=== PATIENT | male | born 1975 | race Caucasian/White ===

== ENCOUNTER 2019-12-06 20:33 | Emergency (ER) | payer BC ==
[2019-12-06] MEDS ORDERED: ALBUTEROL 1 PUFF INH STA (20:57)
--- NOTE | 2019-12-06 20:58 | ED Physician Documentation ---
PD HPI DYSPNEA - Stated complaint Stated Complaint: SOA/WHEEZING - Chief complaint Chief Complaint: Resp - History obtained from History obtained from: Patient - Additional information Additional information: 44-year-old gentleman with his history of anxiety but no history of heart or lung problems has had progressive wheezing and shortness of breath with mild cough for the last few days. No associated fevers or pedal edema. Review of Systems Constitutional: denies: Fever, Chills Nose: denies: Rhinorrhea / runny nose Throat: denies: Sore throat Cardiac: denies: Chest pain / pressure, Palpitations Respiratory: reports: Dyspnea, Cough PD PAST MEDICAL HISTORY - Present Medications Home Medications: Ambulatory Orders Medication Instructions Recorded Confirmed Albuterol Sulf [Ventolin Hfa 1 - 2 puffs INH Q4HR PRN #1 inhaler 12/06/19 Inhaler] Escitalopram [Lexapro] 10 mg PO DAILY 12/06/19 12/06/19 dexAMETHasone [Decadron] 4 mg PO BIDWM #10 tablet 12/06/19 - Allergies Allergies/Adverse Reactions: Allergies Allergy/AdvReac Type Severity Reaction Status Date / Time Sulfa (Sulfonamide AdvReac Hives Verified 12/06/19 20:40 Antibiotics) PD ED PE NORMAL - Vitals Vital signs reviewed: Yes - General General: Alert and oriented X 3, No acute distress - HEENT HEENT: PERRL, EOMI - Neck Neck: Supple, no meningeal sign, No bony TTP - Cardiac Cardiac: Other (Modest tachycardia without ectopy or murmur) - Respiratory Respiratory: Other (diminished throughout with exp wheezes, no distress) - Abdomen Abdomen: Non tender - Extremities Extremities: No edema, No calf tenderness / cord - Psych Psych: Normal mood, Normal affect Results - Vitals Vitals: Vital Signs - 24 hr 12/06/19 12/06/19 12/06/19 20:40 20:59 21:26 Temperature 36.5 C Heart Rate 120 H 117 H 120 H Respiratory 16 22 24 Rate Blood Pressure 143/85 H 131/85 H O2 Saturation 96 100 12/06/19 21:44 Temperature Heart Rate 119 H Respiratory 18 Rate Blood Pressure 107/59 L O2 Saturation 100 Oxygen O2 Source Room air PD MEDICAL DECISION MAKING - ED course ED course: 44-year-old gentleman presents with wheezing and cough. No sign of heart failure. Chest x-ray unremarkable. Much clearer lungs after albuterol here and he is administered steroids. Discussed need for quarantine until negative COVID result. Departure - Departure Disposition: 01 Home, Self Care Clinical Impression: Bronchitis Condition: Good Record reviewed to determine appropriate education?: Yes Instructions: ED Bronchitis Asthmatic Prescriptions: Albuterol Sulf [Ventolin Hfa Inhaler] 1 - 2 puffs INH Q4HR PRN #1 inhaler PRN Reason: Shortness Of Air/Wheezing dexAMETHasone [Decadron] 4 mg PO BIDWM #10 tablet Comments: `Your symptoms are consistent with a viral bronchitis. Your chest x-ray is normal. Return anytime if worsening. Observe strict home quarantine until coronavirus results is negative. Suggest signing up for would be patient portal online to view your results. You will not receive a phone call if the result is negative.
--- NOTE | 2019-12-06 21:18 | XRAY Report ---
PROCEDURE: Chest 1 View X-Ray INDICATIONS: cough/wheeze TECHNIQUE: One view of the chest was acquired. COMPARISON: None FINDINGS: Surgical changes and devices: None. Lungs and pleura: No pleural effusions or pneumothorax. Lungs are clear. Mediastinum: Mediastinal contours appear normal. Heart size is normal. Bones and chest wall: No suspicious bony lesions. Overlying soft tissues appear unremarkable. IMPRESSION: No acute cardiopulmonary disease process. Reviewed by: Kayla Vilchis MD, PhD on 12/06/2019 9:17 PM PDT Approved by: Kayla Vilchis MD, PhD on 12/06/2019 9:17 PM PDT Station ID: [id number]
[2019-12-06] MEDS ORDERED: DEXAMETHASONE 10 MG/ML VIAL PO STA (21:44)
[2019-12-06] MEDS ORDERED: CHERRY SYRUP 10 ML UDC PO ONE (21:44)
[2019-12-06 21:47] VITALS: BP 107/59
== END 2019-12-06 21:55 | disposition home or self-care (01) ==
LOC: ED 20:33
DX: J40 Bronchitis, not specified as acute or chronic (principal); Z20.828 Contact with and (suspected) exposure to other viral communicable diseases; R00.0 Tachycardia, unspecified
CPT/HCPCS: 71045; 87635; 94640; 99283; 99284; A9270

== ENCOUNTER 2020-01-14 17:16 | Outpatient (CLI) | payer BC ==
[2020-01-14 20:08] LABS: BASOPHILS % (AUTO) 0.3 %; EOSINOPHILS # (AUTO) 0.2 10^3/uL (0.0-0.7); EOSINOPHILS % (AUTO) 2.2 %; HGB - HEMOGLOBIN 13.9 g/dL (14.0-18.0); LYMPHOCYTES # (AUTO) 2.3 10^3/uL (1.5-3.5); LYMPHOCYTES % (AUTO) 32.4 %; MEAN CORPUSCULAR HEMOGLOBIN 31.8 pg (27.0-31.0); MEAN CORPUSCULAR HGB CONC 32.5 g/dL (32.0-36.0); MEAN CORPUSCULAR VOLUME 97.9 fL (80.0-94.0); MONOCYTES # (AUTO) 0.5 10^3/uL (0.0-1.0); MONOCYTES % (AUTO) 7.3 %; NEUTROPHILS # (AUTO) 4.1 10^3/uL (1.5-6.6); NEUTROPHILS % (AUTO) 57.4 %; PLT - PLATELET COUNT 366 10^3/uL (130-450); RED BLOOD COUNT 4.37 10^6/uL (4.70-6.10); RED CELL DISTRIBUTION WIDTH 13.8 % (12.0-15.0); WHITE BLOOD COUNT 7.2 x10^3/uL (4.8-10.8)
[2020-01-14 20:35] LABS: ALBUMIN 4.4 g/dL (3.2-5.5); ALBUMIN/GLOBULIN RATIO 1.3 (1.0-2.2); ALKALINE PHOSPHATASE 48 IU/L (42-121); ALT ALANINE AMINOTRANSFERASE 21 IU/L (10-60); AST ASPARTATE AMINOTRANSFERASE 19 IU/L (10-42); BILIRUBIN,TOTAL 1.3 mg/dL (0.2-1.0); BUN - BLOOD UREA NITROGEN 18 mg/dL (6-20); CALCIUM 9.6 mg/dL (8.5-10.3); CARBON DIOXIDE - CO2 24 mmol/L (21-32); CHLORIDE 103 mmol/L (101-111); CHOL/HDL RATIO 4.1 (<5.0); CHOLESTEROL 261 mg/dL; GLUCOSE 93 mg/dL (70-100); HDL CHOLESTEROL 64 mg/dL; LDL CHOLESTEROL,CALCULATED 185 mg/dL; LDL/HDL RATIO 2.9 (<3.6); SODIUM 136 mmol/L (135-145); TOTAL PROTEIN 7.8 g/dL (6.7-8.2); VLDL CHOLESTEROL 12 mg/dL
== END 2020-01-14 17:17 | disposition home or self-care (01) ==
LOC: LAB.S 17:16
PROVIDERS: ATTEND Physician Assistant
DX: G62.9 Polyneuropathy, unspecified (principal); R18.8 Other ascites
CPT/HCPCS: 36415; 80053; 80061; 83721; 84443; 85025

== ENCOUNTER 2020-01-14 22:30 | Emergency (ER) | payer BC ==
--- NOTE | 2020-01-14 22:34 | ED Physician Documentation ---
History of Present Illness - Stated complaint Stated Complaint: CP - History obtained from History obtained from: Patient - Additonal information Additional information: 44-year-old male presents with chest pain. Patient reports he thinks he just has anxiety but is complaining of diffuse chest discomfort also some epigastric discomfort as well with nausea with no vomiting no syncope denies any history of IN or stroke. Reports recently was started on Lexapro for anxiety. Denies fevers chills or night sweats denies lower extremity swelling denies any cough or shortness of breath denies any recent long travels any exogenous estrogen use any personal history of hypercoagulability or any recent periods of stasis. Denies any family history of sudden in young age and mother, father, brother sister. Denies tobacco alcohol or drug use. Review of Systems Constitutional: reports: Reviewed and negative Eyes: reports: Reviewed and negative Ears: reports: Reviewed and negative Nose: reports: Reviewed and negative Throat: reports: Reviewed and negative Cardiac: reports: Chest pain / pressure, Palpitations Respiratory: reports: Reviewed and negative : reports: Reviewed and negative Skin: reports: Reviewed and negative Musculoskeletal: reports: Reviewed and negative Neurologic: reports: Reviewed and negative Psychiatric: reports: Anxiety Endocrine: reports: Reviewed and negative Immunocompromised: reports: Reviewed and negative PD PAST MEDICAL HISTORY - Past Medical History Psych: Depression, Anxiety - Past Surgical History Past Surgical History: Yes - Present Medications Home Medications: Ambulatory Orders Medication Instructions Recorded Confirmed Albuterol Sulf [Ventolin Hfa 1 - 2 puffs INH Q4HR PRN #1 inhaler 12/06/19 Inhaler] Escitalopram [Lexapro] 10 mg PO DAILY 12/06/19 12/06/19 dexAMETHasone [Decadron] 4 mg PO BIDWM #10 tablet 12/06/19 - Allergies Allergies/Adverse Reactions: Allergies Allergy/AdvReac Type Severity Reaction Status Date / Time Sulfa (Sulfonamide AdvReac Hives Verified 12/06/19 20:40 Antibiotics) - Social History Does the pt smoke?: No Smoking Status: Never smoker Does the pt drink ETOH?: No Does the pt have substance abuse?: No - Immunizations Immunizations are current?: Yes PD ED PE NORMAL - Vitals Vital signs reviewed: Yes - General General: Alert and oriented X 3, No acute distress, Well developed/nourished - HEENT HEENT: Atraumatic, PERRL, Ears normal, Moist mucous membranes, Pharynx benign, Dentition benign - Neck Neck: Supple, no meningeal sign, No bony TTP, No adenopathy, Thyroid normal, No JVD, No bruit - Cardiac Cardiac: RRR, No murmur, No gallop, No rub, Strong equal pulses - Respiratory Respiratory: No respiratory distress, Clear bilaterally - Abdomen Abdomen: Normal bowel sounds, Soft, Non tender, Non distended, No organomegaly, Other - Male Male : Deferred - Rectal Rectal: Deferred - Back Back: No CVA TTP, No spinal TTP - Derm Derm: Normal color, Warm and dry, No rash - Extremities Extremities: No deformity, No tenderness to palpate, Normal ROM s pain, No edema, No calf tenderness / cord - Neuro Neuro: Alert and oriented X 3, can sterilizer 2-12 intact, No motor deficit, No sensory deficit, Normal speech - Psych Psych: Normal mood, Other (anxious) Results - Vitals Vitals: Vital Signs - 24 hr 01/14/20 01/14/20 01/14/20 22:30 22:41 23:43 Temperature 37.1 C Heart Rate 91 100 91 Respiratory 22 20 18 Rate Blood Pressure 183/110 H 156/113 H O2 Saturation 100 100 98 Oxygen O2 Source Room air - EKG (time done) 22:34 Rate: Other (no stemi) 00:58 Rate: Other (no stemi) - Labs Labs: Laboratory Tests 01/14/20 01/14/20 01/14/20 22:40 22:40 22:40 WBC 9.4 RBC 4.54 L Hgb 15.1 Hct 43.6 MCV 96.0 H MCH 33.3 H MCHC 34.6 RDW 13.6 Plt Count 385 MPV 9.4 Neut # (Auto) 5.3 Lymph # (Auto) 3.2 [place] # (Auto) 0.7 Eos # (Auto) 0.2 Baso # (Auto) 0.0 Absolute Nucleated RBC 0.00 Nucleated RBC % 0.0 Sodium 136 Potassium 3.5 Chloride 99 L Carbon Dioxide 24 Anion Gap 13.0 BUN 24 H Creatinine 1.1 Estimated GFR (MDRD) 73 L Glucose 102 H Calcium 9.9 Total Bilirubin 1.1 H AST 19 ALT 23 Alkaline Phosphatase 60 Troponin I High Sens < 2.3 L Total Protein 8.3 H Albumin 4.7 Globulin 3.6 Albumin/Globulin Ratio 1.3 Lipase 53 H Urine Color Urine Clarity Urine pH Ur Specific [place] Urine Protein Urine Glucose (UA) Urine Ketones Urine Occult Blood Urine Nitrite Urine Bilirubin Urine Urobilinogen Ur Leukocyte Esterase Ur Microscopic Review Urine Culture Comments 01/14/20 23:20 WBC RBC Hgb Hct MCV MCH MCHC RDW Plt Count MPV Neut # (Auto) Lymph # (Auto) [place] # (Auto) Eos # (Auto) Baso # (Auto) Absolute Nucleated RBC Nucleated RBC % Sodium Potassium Chloride Carbon Dioxide Anion Gap BUN Creatinine Estimated GFR (MDRD) Glucose Calcium Total Bilirubin AST ALT Alkaline Phosphatase Troponin I High Sens Total Protein Albumin Globulin Albumin/Globulin Ratio Lipase Urine Color YELLOW Urine Clarity CLEAR Urine pH 8.0 H Ur Specific [place] 1.015 Urine Protein NEGATIVE Urine Glucose (UA) NEGATIVE Urine Ketones NEGATIVE Urine Occult Blood NEGATIVE Urine Nitrite NEGATIVE Urine Bilirubin NEGATIVE Urine Urobilinogen 0.2 (NORMAL) Ur Leukocyte Esterase NEGATIVE Ur Microscopic Review NOT INDICATED Urine Culture Comments NOT INDICATED PD MEDICAL DECISION MAKING - ED course Complexity details: reviewed results, re-evaluated patient, considered differential (acs, anxiety), d/w patient, d/w family, other (heart score 1, PERC 0. ) ED course: 44-year-old male with anxiety and chest pain his to negative EKGs and negative chest x-ray one negative troponin he is refusing additional blood work that was ordered. I had ordered a d-dimer as well as is a repeat troponin. The patient reports that he is pain-free now will like to be discharged home and he will follow-up with his primary care provider on Friday he does have medical decision-making capability and capacity and would assume all risks to include cardiac arrest. Departure - Departure Disposition: Home, Self Care Clinical Impression: Anxiety Chest pain Qualifiers: Chest pain type: unspecified Qualified Code(s): R07.9 - Chest pain, unspecified Condition: Stable Instructions: ED Heart Disease Risk Factors, ED Chest Pain Atypical Unkn Cause Follow-Up: your, doctor [Other] - 01/17/20 Comments: Please follow-up with your physician this or on Friday if available. Return to the emergency department with any concerns.
[2020-01-14 22:48] LABS: BASOPHILS % (AUTO) 0.4 %; EOSINOPHILS # (AUTO) 0.2 10^3/uL (0.0-0.7); EOSINOPHILS % (AUTO) 1.6 %; HGB - HEMOGLOBIN 15.1 g/dL (14.0-18.0); LYMPHOCYTES # (AUTO) 3.2 10^3/uL (1.5-3.5); MEAN CORPUSCULAR HEMOGLOBIN 33.3 pg (27.0-31.0); MEAN CORPUSCULAR HGB CONC 34.6 g/dL (32.0-36.0); MEAN PLATELET VOLUME 9.4 fL (7.4-11.4); MONOCYTES # (AUTO) 0.7 10^3/uL (0.0-1.0); MONOCYTES % (AUTO) 7.7 %; NEUTROPHILS # (AUTO) 5.3 10^3/uL (1.5-6.6); PLT - PLATELET COUNT 385 10^3/uL (130-450); RED BLOOD COUNT 4.54 10^6/uL (4.70-6.10); RED CELL DISTRIBUTION WIDTH 13.6 % (12.0-15.0); WHITE BLOOD COUNT 9.4 x10^3/uL (4.8-10.8)
[2020-01-14] MEDS ORDERED: ASPIRIN 325 MG TABLET PO STA (23:01)
[2020-01-14 23:05] LABS: ALBUMIN 4.7 g/dL (3.2-5.5); ALBUMIN/GLOBULIN RATIO 1.3 (1.0-2.2); BILIRUBIN,TOTAL 1.1 mg/dL (0.2-1.0); CALCIUM 9.9 mg/dL (8.5-10.3); CREATININE 1.1 mg/dL (0.6-1.2); TOTAL PROTEIN 8.3 g/dL (6.7-8.2)
[2020-01-15] MEDS ORDERED: LORazepam 2 MG/ML VIAL IVP STA (00:05)
[2020-01-15 00:18] LABS: BILIRUBIN,URINE NEGATIVE (NEGATIVE); GLUCOSE, URINE (UA) NEGATIVE (NEGATIVE); KETONES,URINE (UA) NEGATIVE (NEGATIVE); LEUKOCYTE ESTERASE, URINE NEGATIVE (NEGATIVE); NITRITE,URINE NEGATIVE (NEGATIVE); OCCULT BLOOD,URINE NEGATIVE (NEGATIVE); PROTEIN,URINE NEGATIVE (NEGATIVE); UROBILINOGEN,URINE 0.2 (NORMAL) E.U./dL (NORMAL)
[2020-01-15 00:19] LABS: CLARITY,URINE CLEAR (CLEAR)
[2020-01-15 01:05] VITALS: BP 113/55
--- NOTE | 2020-01-15 08:12 | XRAY Report ---
PROCEDURE: Chest 1 View X-Ray INDICATIONS: cp TECHNIQUE: One view of the chest was acquired. COMPARISON: 12/06/2019 FINDINGS: Surgical changes and devices: None. Lungs and pleura: No pleural effusions or pneumothorax. Lungs are clear. Mediastinum: Mediastinal contours appear normal. Heart size is normal. Bones and chest wall: No suspicious bony lesions. Overlying soft tissues appear unremarkable. IMPRESSION: Stable examination of the chest. No acute cardiopulmonary abnormalities. No significant discrepancy with initial interpretation by overnight radiologist. Reviewed by: Momo Peraza MD on 01/15/2020 8:11 AM PDT Approved by: Momo Peraza MD on 01/15/2020 8:11 AM PDT Station ID: [id number]
== END 2020-01-15 01:21 | disposition home or self-care (01) ==
LOC: ED 22:30
DX: F41.9 Anxiety disorder, unspecified (principal); R07.9 Chest pain, unspecified; G62.9 Polyneuropathy, unspecified; R18.8 Other ascites
CPT/HCPCS: 36415; 71045; 80061; 81003; 83690; 84484; 85379; 93005; 96374; 99284; 99285; A9270; J2060; 80053; 81001; 83721; 84443; 85025; 87086

== ENCOUNTER 2020-01-16 12:40 | Outpatient (CLI) | payer BC | END 2020-01-16 12:41 | disposition critical access hospital (66) | LOC: EMS 12:40 | PROVIDERS: ATTEND Surgery | DX: R10.11 Right upper quadrant pain (principal) | CPT/HCPCS: A0425; A0427 ==

== ENCOUNTER 2020-01-16 13:10 | Emergency (ER) | payer BC ==
[2020-01-16] MEDS ORDERED: HYDROmorphone 1 MG/ML CARPUJECT IVP STA ×2 (13:21→16:13)
--- NOTE | 2020-01-16 13:23 | ED Physician Documentation ---
PD HPI CHEST PAIN - Stated complaint Stated Complaint: ABD PX - History obtained from History obtained from: Patient, EMS - Additional information Additional information: 2 days of severe right upper quadrant and chest pain. Was seen here on day 1, work-up for cardiac issues was negative. Pain got worse yesterday. It is a sharp pain both in the right upper quadrant and chest with spasms. It takes his breath away. He is worried he might have a seizure. He is never had a seizure. He appears quite anxious. He came from an urgent care for evaluation of this. Review of Systems Ten Systems: 10 systems reviewed and negative Constitutional: denies: Fever, Chills Cardiac: reports: Chest pain / pressure. denies: Palpitations Respiratory: denies: Dyspnea, Cough GI: reports: Abdominal Pain. denies: Nausea, Vomiting PD PAST MEDICAL HISTORY - Past Medical History Psych: Depression, Anxiety - Past Surgical History Past Surgical History: Yes - Present Medications Home Medications: Ambulatory Orders Medication Instructions Recorded Confirmed Albuterol Sulf [Ventolin Hfa 1 - 2 puffs INH Q4HR PRN #1 inhaler 12/06/19 Inhaler] Escitalopram [Lexapro] 10 mg PO DAILY 12/06/19 12/06/19 dexAMETHasone [Decadron] 4 mg PO BIDWM #10 tablet 12/06/19 Hydrocodone/Acetaminophen 1 - 2 tab PO Q6H PRN #7 tablet 01/16/20 [Hydrocodone-Acetamin 5-325 mg] LORazepam [Ativan] 1 mg PO TID PRN #7 tablet 01/16/20 - Allergies Allergies/Adverse Reactions: Allergies Allergy/AdvReac Type Severity Reaction Status Date / Time Sulfa (Sulfonamide AdvReac Hives Verified 01/16/20 13:25 Antibiotics) - Social History Does the pt smoke?: No Smoking Status: Never smoker Does the pt drink ETOH?: No Does the pt have substance abuse?: No - Immunizations Immunizations are current?: Yes - POLST Patient has POLST: No PD ED PE NORMAL - Vitals Vital signs reviewed: Yes - General General: Alert and oriented X 3, Other (Anxious, hyperverbal) - HEENT HEENT: PERRL, EOMI - Neck Neck: Supple, no meningeal sign, No bony TTP - Cardiac Cardiac: RRR, No murmur - Respiratory Respiratory: No respiratory distress - Abdomen Abdomen: Normal bowel sounds, Soft, Other (Mild tenderness in the right upper quadrant with equivocal Aguirre sign) - Back Back: No CVA TTP, No spinal TTP - Derm Derm: Normal color, Warm and dry - Extremities Extremities: No edema, No calf tenderness / cord - Neuro Neuro: Alert and oriented X 3, Normal speech Results - Vitals Vitals: Vital Signs - 24 hr 01/16/20 01/16/20 01/16/20 13:13 14:11 16:34 Temperature 36.3 C L 36.6 C 36.5 C Heart Rate 85 76 71 Respiratory 16 20 13 Rate Blood Pressure 131/94 H 103/70 133/73 H O2 Saturation 100 98 95 01/16/20 01/16/20 01/16/20 17:27 19:11 19:18 Temperature 36.9 C 36.7 C Heart Rate 82 83 69 Respiratory 16 16 16 Rate Blood Pressure 120/64 161/95 H 154/91 H O2 Saturation 94 99 99 Oxygen O2 Source Room air - EKG (time done) 1340 Rate: Rate (enter#) (68) Rhythm: NSR [place]: Normal Intervals: Normal MD QRS: Normal Ischemia: Normal ST segments Computer interpretation: Agree with computer - Labs Labs: Laboratory Tests 01/16/20 01/16/20 01/16/20 13:30 13:30 13:30 WBC 6.3 RBC 4.28 L Hgb 14.2 Hct 40.8 L MCV 95.3 H MCH 33.2 H MCHC 34.8 RDW 13.5 Plt Count 371 MPV 9.1 Neut # (Auto) 3.6 Lymph # (Auto) 1.4 L [place] # (Auto) 0.5 Eos # (Auto) 0.7 Baso # (Auto) 0.0 Absolute Nucleated RBC 0.00 Nucleated RBC % 0.0 VBG pH VBG pCO2 VBG pO2 VBG HCO3 VBG Total CO2 VBG O2 Saturation VBG Base Excess Sodium 136 Potassium 4.1 Chloride 102 Carbon Dioxide 20 L Anion Gap 14.0 H BUN 16 Creatinine 1.1 Estimated GFR (MDRD) 73 L Glucose 118 H Calcium 9.7 Total Bilirubin 1.2 H AST 17 ALT 22 Alkaline Phosphatase 57 Troponin I High Sens 2.7 Total Protein 8.3 H Albumin 4.6 Globulin 3.7 Albumin/Globulin Ratio 1.2 Lipase 42 Urine Color Urine Clarity Urine pH Ur Specific [place] Urine Protein Urine Glucose (UA) Urine Ketones Urine Occult Blood Urine Nitrite Urine Bilirubin Urine Urobilinogen Ur Leukocyte Esterase Ur Microscopic Review Urine Culture Comments Urine Opiates Screen Ur Oxycodone Screen Urine Methadone Screen Ur Propoxyphene Screen Ur Barbiturates Screen Ur Tricyclics Screen Ur Phencyclidine Scrn Ur Amphetamine Screen U Methamphetamines Scrn U Benzodiazepines Scrn Urine Cocaine Screen U Cannabinoids Screen Ethyl Alcohol < 5.0 01/16/20 01/16/20 13:30 18:10 WBC RBC Hgb Hct MCV MCH MCHC RDW Plt Count MPV Neut # (Auto) Lymph # (Auto) [place] # (Auto) Eos # (Auto) Baso # (Auto) Absolute Nucleated RBC Nucleated RBC % VBG pH 7.491 H VBG pCO2 26.8 L VBG pO2 43.0 VBG HCO3 20.5 L VBG Total CO2 21.0 L VBG O2 Saturation 83.0 H VBG Base Excess -3.0 L Sodium Potassium Chloride Carbon Dioxide Anion Gap BUN Creatinine Estimated GFR (MDRD) Glucose Calcium Total Bilirubin AST ALT Alkaline Phosphatase Troponin I High Sens Total Protein Albumin Globulin Albumin/Globulin Ratio Lipase Urine Color YELLOW Urine Clarity CLEAR Urine pH 5.0 Ur Specific [place] 1.010 Urine Protein NEGATIVE Urine Glucose (UA) NEGATIVE Urine Ketones NEGATIVE Urine Occult Blood NEGATIVE Urine Nitrite NEGATIVE Urine Bilirubin NEGATIVE Urine Urobilinogen 0.2 (NORMAL) Ur Leukocyte Esterase NEGATIVE Ur Microscopic Review NOT INDICATED Urine Culture Comments NOT INDICATED Urine Opiates Screen POSITIVE H Ur Oxycodone Screen NEGATIVE Urine Methadone Screen NEGATIVE Ur Propoxyphene Screen NEGATIVE Ur Barbiturates Screen NEGATIVE Ur Tricyclics Screen NEGATIVE Ur Phencyclidine Scrn NEGATIVE Ur Amphetamine Screen POSITIVE H U Methamphetamines Scrn POSITIVE H U Benzodiazepines Scrn POSITIVE H Urine Cocaine Screen NEGATIVE U Cannabinoids Screen NEGATIVE Ethyl Alcohol - Rads (name of study) Upper quadrant ultrasound Radiology: EMP read contemporaneously (Focal right-sided intrahepatic biliary ductal dilatation and increased liver echogenicity with an otherwise normal gallbladder.) PD MEDICAL DECISION MAKING - ED course ED course: 44-year-old gentleman presents with upper abdominal/chest pain, significant anxiety component. Pattern most consistent with a biliary source, ultrasound negative but concerning for potential intrahepatic biliary ductal dilatation and followed with CT which was negative for same. Treated stepwise with medications with relief of his pain. Noted to have methamphetamines in the urinalysis which he adamantly denied and will send out for confirmation. Departure - Departure Disposition: 01 Home, Self Care Clinical Impression: Anxiety, Methamphetamine abuse Abdominal pain Qualifiers: Abdominal location: generalized Qualified Code(s): R10.84 - Generalized abdominal pain Chest pain Qualifiers: Chest pain type: unspecified Qualified Code(s): R07.9 - Chest pain, unspecified Condition: Good Record reviewed to determine appropriate education?: Yes Instructions: Abdominal Pain Follow-Up: Audrey Vaughan MD [Provider Admit Priv/Credential] - Within 3 Days Prescriptions: LORazepam [Ativan] 1 mg PO TID PRN #7 tablet PRN Reason: Anxiety Hydrocodone/Acetaminophen [Hydrocodone-Acetamin 5-325 mg] 1 - 2 tab PO Q6H PRN #7 tablet PRN Reason: Pain Comments: As discussed, work-up today shows a normal CAT scan, labs are unremarkable. Urinalysis was positive for multiple drugs including methamphetamines. You have stated you do not use these Drugs and I am sending the urine out for confirmatory test. Follow-up with your doctor for results of this. You should also follow-up with the surgeon listed on this form, call tomorrow for an appointment. Consider HIDA scan and/or upper endoscopy. Discharge Date/Time: 01/16/20 19:21
[2020-01-16 13:37] LABS: BASOPHILS % (AUTO) 0.3 %; EOSINOPHILS # (AUTO) 0.7 10^3/uL (0.0-0.7); EOSINOPHILS % (AUTO) 11.5 %; HGB - HEMOGLOBIN 14.2 g/dL (14.0-18.0); LYMPHOCYTES # (AUTO) 1.4 10^3/uL (1.5-3.5); LYMPHOCYTES % (AUTO) 22.4 %; MEAN CORPUSCULAR HEMOGLOBIN 33.2 pg (27.0-31.0); MEAN CORPUSCULAR HGB CONC 34.8 g/dL (32.0-36.0); MEAN CORPUSCULAR VOLUME 95.3 fL (80.0-94.0); MEAN PLATELET VOLUME 9.1 fL (7.4-11.4); MONOCYTES # (AUTO) 0.5 10^3/uL (0.0-1.0); MONOCYTES % (AUTO) 8.5 %; NEUTROPHILS # (AUTO) 3.6 10^3/uL (1.5-6.6); PLT - PLATELET COUNT 371 10^3/uL (130-450); RED BLOOD COUNT 4.28 10^6/uL (4.70-6.10); RED CELL DISTRIBUTION WIDTH 13.5 % (12.0-15.0); WHITE BLOOD COUNT 6.3 x10^3/uL (4.8-10.8)
[2020-01-16 13:40] LABS: VBG PCO2 26.8 mmHg (41-51); VBG PH 7.491 (7.31-7.41)
[2020-01-16 13:50] LABS: ALBUMIN 4.6 g/dL (3.2-5.5); ALBUMIN/GLOBULIN RATIO 1.2 (1.0-2.2); ALKALINE PHOSPHATASE 57 IU/L (42-121); ALT ALANINE AMINOTRANSFERASE 22 IU/L (10-60); AST ASPARTATE AMINOTRANSFERASE 17 IU/L (10-42); BILIRUBIN,TOTAL 1.2 mg/dL (0.2-1.0); BUN - BLOOD UREA NITROGEN 16 mg/dL (6-20); CALCIUM 9.7 mg/dL (8.5-10.3); CARBON DIOXIDE - CO2 20 mmol/L (21-32); CHLORIDE 102 mmol/L (101-111); CREATININE 1.1 mg/dL (0.6-1.2); GLUCOSE 118 mg/dL (70-100); LIPASE 42 U/L (22-51); SODIUM 136 mmol/L (135-145); TOTAL PROTEIN 8.3 g/dL (6.7-8.2)
--- NOTE | 2020-01-16 16:39 | Ultrasound Report ---
PROCEDURE: Abdomen Limited INDICATIONS: ruq pain TECHNIQUE: Real-time focused scanning was performed of the abdomen, with image documentation. COMPARISON: None available FINDINGS: The liver demonstrates normal size. The liver demonstrates increased echogenicity, which l imits ultrasound sensitivity for detection of masses. There is mild intrahepatic biliary ductal dilatation seen, with a duct within the right lobe of the l iver dilated to 5 mm. No gallstones or significant sludge can be seen. The gallbladder wall does not appear thickened. Ther e is no specific pericholecystic fluid. The sonographic Aguirre's sign is negative. No biliary ductal dilatation is seen. The common bile duct measures 7 mm. The visualized right kidney is unremarkable. This study is limited by body habitus. IMPRESSION: Mild focal intrahepatic biliary ductal dilatation is seen on the right side. If clinically appropria te, please consider a dedicated MRCP for further evaluation (assuming that there is no contraindicati on). Normal-appearing gallbladder. Increased liver echogenicity is seen. This is nonspecific, yet it is attributed to fatty infiltration . Note: Concordant preliminary findings given by the health inspector food upon the completion of the examination to Dr. Vieira at 4:10 PM on 01/16/2020. Reviewed by: Greg Trent MD on 01/16/2020 3:38 PM [facility] Approved by: Greg Trent MD on 01/16/2020 3:38 PM [facility] Station ID: [id number]
[2020-01-16] MEDS ORDERED: IOVERSOL 320 100 ML VIAL IVP ONE ×2 (16:50→17:12)
--- NOTE | 2020-01-16 17:18 | CT Report ---
PROCEDURE: Abdomen/Pelvis W INDICATIONS: abd pain, poss choledocholith, IV only CONTRAST: IV CONTRAST: Optiray 320 ml: 100 PO CONTRAST: *NO PO CONTRAST TECHNIQUE: After the administration of 100 cc nonionic IV contrast, 5 mm thick sections acquired from the diaphr agms to the symphysis. 5 mm thick coronal and sagittal reformats were acquired. For radiation dose reduction, the following was used: automated exposure control, adjustment of mA and/or kV according to patient size. COMPARISON: Correlation is made with limited abdominal ultrasound, 01/16/2020. No prior CT studies ar e available for comparison on the PACS system at the time of this dictation. FINDINGS: Image quality: Excellent. ABDOMEN: Lung bases: Lung bases are clear. Heart size is normal. Solid organs: Liver and spleen are normal in size and enhancement. Gallbladder wall does not appear thickened. In this patient with this given history, scrutiny is g iven to the biliary system. There is no biliary dilatation seen. No CT correlate is found for the pebbles arent intrahepatic biliary ductal dilatation seen on the right on the accompanying ultrasound study. No extrahepatic biliary ductal dilatation is seen. No findings of biliary ductal stones are seen. Pancreas enhances normally. No adrenal nodules. Kidneys demonstrate normal size and enhancement, wi thout hydronephrosis. A normal appendix is incidentally noted. A mild to moderate amount of stool c an be seen within the colon. Peritoneum and bowel: Bowel loops demonstrate normal wall thickness and caliber. No free fluid or a ir. Nodes and vessels: No retroperitoneal or mesenteric adenopathy by size criteria. Aorta and inferior vena cava are normal in size. Miscellaneous: There is a trace periumbilical hernia. PELVIS: Genitourinary: Bladder wall thickness is normal. Miscellaneous: No inguinal hernias or adenopathy. Bones: No suspicious bony lesions. No vertebral body compression fractures. IMPRESSION: No biliary dilatation can be seen. No biliary ductal stones are seen. If clinically appropriate, please consider a dedicated MRCP for further evaluation (assuming that the re is no contraindication). A mild to moderate amount of stool can be seen within the colon. Please consider early constipation. Incidental note is made of: Trace periumbilical hernia Normal appendix Reviewed by: Greg Trent MD on 01/16/2020 4:17 PM [facility] Approved by: Greg Trent MD on 01/16/2020 4:17 PM [facility] Station ID: [id number]
[2020-01-16] MEDS ORDERED: LIDOCAINE VISCOUS 2% 15 ML UDC MM STA (17:41)
[2020-01-16] MEDS ORDERED: MAG HYDROX/AL HYDROX/SIMETH 30 ML UDC PO STA (17:41)
[2020-01-16 18:21] LABS: MUDS CUTOFF CONCENTRATIONS CUTOFF CONC BELOW:
[2020-01-16 18:33] LABS: BILIRUBIN,URINE NEGATIVE (NEGATIVE); CLARITY,URINE CLEAR (CLEAR); GLUCOSE, URINE (UA) NEGATIVE (NEGATIVE); KETONES,URINE (UA) NEGATIVE (NEGATIVE); LEUKOCYTE ESTERASE, URINE NEGATIVE (NEGATIVE); NITRITE,URINE NEGATIVE (NEGATIVE); OCCULT BLOOD,URINE NEGATIVE (NEGATIVE); PROTEIN,URINE NEGATIVE (NEGATIVE); UROBILINOGEN,URINE 0.2 (NORMAL) E.U./dL (NORMAL)
[2020-01-16 18:43] LABS: AMPHETAMINE SCREEN,URINE POSITIVE (NEGATIVE); BENZODIAZEPINES SCREEN, URINE POSITIVE (NEGATIVE); COCAINE SCREEN URINE NEGATIVE (NEGATIVE); METHADONE SCREEN, URINE NEGATIVE (NEGATIVE); METHAMPHETAMINES SCREEN, URINE POSITIVE (NEGATIVE); OPIATE SCREEN, URINE POSITIVE (NEGATIVE); OXYCODONE SCREEN, URINE NEGATIVE (NEGATIVE); PROPOXYPHENE SCREEN, URINE NEGATIVE (NEGATIVE); TRICYCLIC ANTIDEPRESSANT,URINE NEGATIVE (NEGATIVE)
[2020-01-16] MEDS ORDERED: LORazepam 2 MG/ML VIAL IVP STA (19:02)
[2020-01-16] MEDS ORDERED: HYDROcod/ACET 5/325 Prepack 4 PO STA (19:02)
[2020-01-16 19:20] VITALS: BP 154/91
== END 2020-01-16 19:21 | disposition home or self-care (01) ==
LOC: ED 13:10
DX: F41.9 Anxiety disorder, unspecified (principal); F15.10 Other stimulant abuse, uncomplicated; R10.84 Generalized abdominal pain; R07.9 Chest pain, unspecified
CPT/HCPCS: 36415; 74177; 76705; 80053; 80306; 80320; 81003; 81599; 82803; 83690; 84484; 85025; 93005; 96374; 96375; 96376; 99284; 99285; A9270; J1170; J2060; Q9967; 81001; 87086

== ENCOUNTER 2020-01-31 11:43 | Outpatient (CLI) | payer BC ==
[2020-01-31 16:07] LABS: ABSOLUTE RETICS # AUTO 0.088 10^6/uL (0.020-0.110); BASOPHILS % (AUTO) 0.5 %; EOSINOPHILS # (AUTO) 0.1 10^3/uL (0.0-0.7); EOSINOPHILS % (AUTO) 1.5 %; HGB - HEMOGLOBIN 14.3 g/dL (14.0-18.0); LYMPHOCYTES # (AUTO) 1.5 10^3/uL (1.5-3.5); LYMPHOCYTES % (AUTO) 20.2 %; MEAN CORPUSCULAR HEMOGLOBIN 32.5 pg (27.0-31.0); MEAN CORPUSCULAR HGB CONC 33.6 g/dL (32.0-36.0); MEAN CORPUSCULAR VOLUME 96.6 fL (80.0-94.0); MEAN PLATELET VOLUME 9.8 fL (7.4-11.4); MONOCYTES # (AUTO) 0.6 10^3/uL (0.0-1.0); NEUTROPHILS # (AUTO) 5.2 10^3/uL (1.5-6.6); NEUTROPHILS % (AUTO) 69.4 %; PLT - PLATELET COUNT 340 10^3/uL (130-450); RED CELL DISTRIBUTION WIDTH 13.1 % (12.0-15.0); WHITE BLOOD COUNT 7.5 x10^3/uL (4.8-10.8)
[2020-01-31 16:24] LABS: ALBUMIN 4.4 g/dL (3.2-5.5); ALBUMIN/GLOBULIN RATIO 1.2 (1.0-2.2); BILIRUBIN,TOTAL 1.8 mg/dL (0.2-1.0); CALCIUM 9.7 mg/dL (8.5-10.3); TOTAL PROTEIN 8.1 g/dL (6.7-8.2)
== END 2020-01-31 11:44 | disposition home or self-care (01) ==
LOC: LAB.S 11:43
PROVIDERS: ATTEND Family Medicine
DX: G60.9 Hereditary and idiopathic neuropathy, unspecified (principal); R20.2 Paresthesia of skin
CPT/HCPCS: 36415; 80053; 82607; 82746; 83921; 84443; 85025; 85045

== ENCOUNTER 2020-04-11 15:38 | Outpatient (CLI) | payer BC ==
[2020-04-11 15:44] LABS: MUDS CUTOFF CONCENTRATIONS CUTOFF CONC BELOW:
[2020-04-11 20:40] LABS: AMPHETAMINE SCREEN,URINE NEGATIVE (NEGATIVE); BENZODIAZEPINES SCREEN, URINE NEGATIVE (NEGATIVE); COCAINE SCREEN URINE NEGATIVE (NEGATIVE); METHADONE SCREEN, URINE NEGATIVE (NEGATIVE); METHAMPHETAMINES SCREEN, URINE NEGATIVE (NEGATIVE); OPIATE SCREEN, URINE NEGATIVE (NEGATIVE); OXYCODONE SCREEN, URINE NEGATIVE (NEGATIVE); PROPOXYPHENE SCREEN, URINE NEGATIVE (NEGATIVE); TRICYCLIC ANTIDEPRESSANT,URINE NEGATIVE (NEGATIVE)
== END 2020-04-11 15:39 | disposition home or self-care (01) ==
LOC: LAB.S 15:38
PROVIDERS: ATTEND Psychiatry & Neurology Psychiatry
DX: F41.9 Anxiety disorder, unspecified (principal)
CPT/HCPCS: 80306

== ENCOUNTER 2020-04-26 10:52 | Emergency (ER) | payer BC, OTHER ==
--- NOTE | 2020-04-26 11:23 | XRAY Report ---
PROCEDURE: Chest 1 View X-Ray INDICATIONS: Chest pain TECHNIQUE: One view of the chest was acquired. COMPARISON: 01/14/2020 FINDINGS: Surgical changes and devices: None. Lungs and pleura: No pleural effusions or pneumothorax. Lungs are clear. Mediastinum: Mediastinal contours appear normal. Heart size is normal. Bones and chest wall: No suspicious bony lesions. Overlying soft tissues appear unremarkable. IMPRESSION: No acute cardiopulmonary pathology. Reviewed by: Miguel Ángel Bhatia MD on 04/26/2020 10:[address] [facility] Approved by: Miguel Ángel Bhatia MD on 04/26/2020 10:[address] [facility] Station ID: [id number]
[2020-04-26 11:36] LABS: BASOPHILS % (AUTO) 0.3 %; EOSINOPHILS # (AUTO) 0.2 10^3/uL (0.0-0.7); EOSINOPHILS % (AUTO) 2.2 %; HGB - HEMOGLOBIN 14.8 g/dL (14.0-18.0); LYMPHOCYTES # (AUTO) 2.3 10^3/uL (1.5-3.5); LYMPHOCYTES % (AUTO) 33.7 %; MEAN CORPUSCULAR HEMOGLOBIN 31.1 pg (27.0-31.0); MEAN CORPUSCULAR HGB CONC 33.3 g/dL (32.0-36.0); MEAN CORPUSCULAR VOLUME 93.3 fL (80.0-94.0); MEAN PLATELET VOLUME 9.6 fL (7.4-11.4); MONOCYTES # (AUTO) 0.5 10^3/uL (0.0-1.0); MONOCYTES % (AUTO) 7.5 %; NEUTROPHILS # (AUTO) 3.8 10^3/uL (1.5-6.6); NEUTROPHILS % (AUTO) 56.2 %; PLT - PLATELET COUNT 351 10^3/uL (130-450); RED BLOOD COUNT 4.76 10^6/uL (4.70-6.10); RED CELL DISTRIBUTION WIDTH 13.4 % (12.0-15.0); WHITE BLOOD COUNT 6.7 x10^3/uL (4.8-10.8)
[2020-04-26 11:49] LABS: ALBUMIN 4.7 g/dL (3.2-5.5); ALBUMIN/GLOBULIN RATIO 1.3 (1.0-2.2); BILIRUBIN,TOTAL 1.1 mg/dL (0.2-1.0); CREATININE 1.1 mg/dL (0.6-1.2); TOTAL PROTEIN 8.3 g/dL (6.7-8.2)
[2020-04-26] MEDS ORDERED: LORazepam 2 MG/ML VIAL IVP STA (11:57)
--- NOTE | 2020-04-26 12:00 | ED Physician Documentation ---
History of Present Illness - Stated complaint Stated Complaint: CHEST PX/PX LEFT ARM - Chief complaint Chief Complaint: Cardiac - History obtained from History obtained from: Patient - History of Present Illness Timing: How many days ago (2) - Additonal information Additional information: 44-year-old male presents emergency department for evaluation of constant left- sided chest pain with radiation to the arm. He reports pain began about 2 days ago. He states that the arm pain is new. He does report a history of previous chest pain for which he is presented to the emergency department. Ultimately he has been told that he has anxiety. He is attempting to see a psychiatrist to help get his anxiety managed. He denies alcohol or drug use though he does admit to cannabis. Last urine drug screen was positive for methamphetamine which patient denies use of. He is a non-smoker. Denies any history of hypertension. Denies any family history of early cardiac disease. Chest pain is not exertional. Nonpleuritic. No cough or fever. Review of Systems Constitutional: denies: Fever, Chills Eyes: reports: Reviewed and negative Ears: reports: Reviewed and negative Nose: reports: Reviewed and negative Throat: reports: Reviewed and negative Cardiac: reports: Chest pain / pressure. denies: Palpitations Respiratory: denies: Dyspnea, Cough GI: reports: Nausea. denies: Abdominal Pain, Vomiting : denies: Dysuria, Frequency Skin: denies: Rash, Lesions Musculoskeletal: reports: Reviewed and negative Psychiatric: reports: Anxiety. denies: Depressed, Suicidal, Homicidal PD PAST MEDICAL HISTORY - Past Medical History Cardiovascular: None Respiratory: None Neuro: Peripheral neuropathy Endocrine/Autoimmune: None GI: Other : None HEENT: None Psych: Depression, Anxiety, Panic attacks Musculoskeletal: None Derm: None Other Past Medical History: IBS - Past Surgical History Past Surgical History: Yes - Present Medications Home Medications: Ambulatory Orders Medication Instructions Recorded Confirmed Albuterol Sulf [Ventolin Hfa 1 - 2 puffs INH Q4HR PRN #1 inhaler 12/06/19 04/26/20 Inhaler] Escitalopram [Lexapro] 20 mg PO DAILY 12/06/19 04/26/20 Buspirone HCl 30 mg PO DAILY 04/26/20 04/26/20 - Allergies Allergies/Adverse Reactions: Allergies Allergy/AdvReac Type Severity Reaction Status Date / Time Sulfa (Sulfonamide AdvReac Hives Verified 01/21/20 09:37 Antibiotics) - Social History Does the pt smoke?: No Smoking Status: Never smoker Does the pt drink ETOH?: No Does the pt have substance abuse?: No - Immunizations Immunizations are current?: Yes - POLST Patient has POLST: No PD ED PE EXPANDED - General General: Alert, Anxious - HEENT HEENT: Atraumatic, PERRL - Eyes Eyes: PERRL, Normal accommodation - Neck Neck: Supple w/out meningeal sx, No tenderness. No: Adenopathy - Cardiac Cardiac: Regular Rate, Regular Rhythm, Radial strong equal, Cap refill < 2 sec. No: Murmur Present - Respiratory Respiratory: Clear to ausultation mei. No: Distress, Labored - Abdomen Abdomen: Normal Bowel sounds, Tender to palpation. No: Rebound, Guarding - Derm Derm: Normal color. No: Rash - Extremities Extremities: Normal. No: Deformity, Tenderness - Neuro Neuro: Alert and Oriented X 3, CNII-XII intact - GCS Eye Opening: Spontaneous Motor: Obeys Commands Verbal: Oriented Total: 15 - Psych Psych: Anxious, Pressured speech (hyper verbal). No: Agitated, Combative Results - Vitals Vitals: Vital Signs - 24 hr 04/26/20 04/26/20 04/26/20 10:56 11:28 12:24 Temperature 36.3 C L 37.2 C 37.1 C Heart Rate 118 H 100 102 H Respiratory 18 20 16 Rate Blood Pressure 132/100 H 145/101 H 146/102 H O2 Saturation 97 100 98 04/26/20 12:47 Temperature 36.8 C Heart Rate 94 Respiratory 20 Rate Blood Pressure 142/99 H O2 Saturation 98 Oxygen O2 Source Room air - EKG (time done) 1109 Rate: Rate (enter#) Rhythm: NSR [place]: Normal Intervals: Normal [place] QRS: Normal Ischemia: Normal ST segments Compare to prior EKG: Unchanged from prior EKG Computer interpretation: Agree with computer - Labs Labs: Laboratory Tests 04/26/20 04/26/20 04/26/20 11:25 11:25 11:25 WBC 6.7 RBC 4.76 Hgb 14.8 Hct 44.4 MCV 93.3 MCH 31.1 H MCHC 33.3 RDW 13.4 Plt Count 351 MPV 9.6 Neut # (Auto) 3.8 Lymph # (Auto) 2.3 [place] # (Auto) 0.5 Eos # (Auto) 0.2 Baso # (Auto) 0.0 Absolute Nucleated RBC 0.00 Nucleated RBC % 0.0 Sodium 141 Potassium 3.6 Chloride 103 Carbon Dioxide 24 Anion Gap 14.0 H BUN 23 H Creatinine 1.1 Estimated GFR (MDRD) 73 L Glucose 117 H Calcium 10.0 Total Bilirubin 1.1 H AST 17 ALT 23 Alkaline Phosphatase 55 Troponin I High Sens < 2.3 L Total Protein 8.3 H Albumin 4.7 Globulin 3.6 Albumin/Globulin Ratio 1.3 Lipase 33 Urine Opiates Screen Ur Oxycodone Screen Urine Methadone Screen Ur Propoxyphene Screen Ur Barbiturates Screen Ur Tricyclics Screen Ur Phencyclidine Scrn Ur Amphetamine Screen U Methamphetamines Scrn U Benzodiazepines Scrn Urine Cocaine Screen U Cannabinoids Screen 04/26/20 12:20 WBC RBC Hgb Hct MCV MCH MCHC RDW Plt Count MPV Neut # (Auto) Lymph # (Auto) [place] # (Auto) Eos # (Auto) Baso # (Auto) Absolute Nucleated RBC Nucleated RBC % Sodium Potassium Chloride Carbon Dioxide Anion Gap BUN Creatinine Estimated GFR (MDRD) Glucose Calcium Total Bilirubin AST ALT Alkaline Phosphatase Troponin I High Sens Total Protein Albumin Globulin Albumin/Globulin Ratio Lipase Urine Opiates Screen NEGATIVE Ur Oxycodone Screen NEGATIVE Urine Methadone Screen NEGATIVE Ur Propoxyphene Screen NEGATIVE Ur Barbiturates Screen NEGATIVE Ur Tricyclics Screen NEGATIVE Ur Phencyclidine Scrn NEGATIVE Ur Amphetamine Screen POSITIVE H U Methamphetamines Scrn NEGATIVE U Benzodiazepines Scrn NEGATIVE Urine Cocaine Screen NEGATIVE U Cannabinoids Screen POSITIVE H - Rads (name of study) CXR Radiology: Final report received (no acute cardiopulmonary pathology) PD MEDICAL DECISION MAKING - ED course Complexity details: reviewed results, re-evaluated patient, considered differential, d/w patient ED course: 44-year-old male presents emergency department for evaluation of chest pain for 2 days. He reports radiation down the left arm. He has had similar events in the past and was diagnosed with anxiety/panic attack. Today here in the emergency department his EKG is nonischemic. Despite 2 days of chest pain his high-sensitivity troponin is negative. Chest x-ray shows no acute pathology. Urine drug screen was completed and he is noted to be amphetamine and can nabinoid positive. I discussed this finding with the patient. He denies that he has any drug use. He reports that this is likely a fluke. However here in the emergency department he has been quite animated and hyperverbal. He was given some Ativan which did reduce his anxiety. I encouraged him to abstain from any further drug use and will allow him to follow-up with his primary care providers. Departure - Departure Disposition: Home, Self Care Clinical Impression: Anxiety Chest pain Qualifiers: Chest pain type: unspecified Qualified Code(s): R07.9 - Chest pain, unspecified Condition: Stable Record reviewed to determine appropriate education?: Yes Comments: Jose your EKG chest x-ray and labs today are all essentially a. You are not having a heart attack. Unfortunately your urine drug screen continues to show amphetamine. Use of amphetamines can cause anxiety and chest pain. I encourage you to abstain from any further use in the future. Continue to follow up with your psychiatry provider for follow up of your anxiety If at any point you develop worsening chest pain, cannot breathe well, have arm or leg swelling, then please return to the emergency department
[2020-04-26] MEDS ORDERED: SODIUM CHLORIDE 0.9% 1,000 ML IV STA (12:17)
[2020-04-26 12:24] LABS: MUDS CUTOFF CONCENTRATIONS CUTOFF CONC BELOW:
[2020-04-26 12:40] LABS: AMPHETAMINE SCREEN,URINE POSITIVE (NEGATIVE); BENZODIAZEPINES SCREEN, URINE NEGATIVE (NEGATIVE); COCAINE SCREEN URINE NEGATIVE (NEGATIVE); METHADONE SCREEN, URINE NEGATIVE (NEGATIVE); METHAMPHETAMINES SCREEN, URINE NEGATIVE (NEGATIVE); OPIATE SCREEN, URINE NEGATIVE (NEGATIVE); OXYCODONE SCREEN, URINE NEGATIVE (NEGATIVE); PROPOXYPHENE SCREEN, URINE NEGATIVE (NEGATIVE); TRICYCLIC ANTIDEPRESSANT,URINE NEGATIVE (NEGATIVE)
[2020-04-26 12:48] VITALS: BP 142/99
== END 2020-04-26 13:06 | disposition home or self-care (01) ==
LOC: ED 10:52
DX: F41.9 Anxiety disorder, unspecified (principal); R07.9 Chest pain, unspecified; M79.602 Pain in left arm
CPT/HCPCS: 36415; 71045; 80053; 80306; 83690; 84484; 85025; 93005; 96374; 99283; 99284; J2060

== ENCOUNTER 2020-06-22 20:04 | Emergency (ER) | payer OTHER ==
[2020-06-22 20:11] VITALS: BP 160/100
[2020-06-22] MEDS ORDERED: LORazepam 1 MG TABLET PO STA (20:25)
--- NOTE | 2020-06-22 20:27 | ED Physician Documentation ---
History of Present Illness - Stated complaint Stated Complaint: PANIC ATTACK - Chief complaint Chief Complaint: MHE - History obtained from History obtained from: Patient - Additonal information Additional information: 44-year-old gentleman with chronic anxiety under the care of Alma Delia Steward, currently on Escitalopram, bupropion, and as needed clonazepam presents with uncontrolled anxiety despite the above. No thoughts of self-harm or HI. No recent drug or alcohol use. Review of Systems Constitutional: denies: Fever, Chills Ears: reports: Reviewed and negative Nose: reports: Reviewed and negative Throat: reports: Reviewed and negative PD PAST MEDICAL HISTORY - Past Medical History Past Medical History: Yes Cardiovascular: None Respiratory: None Neuro: Peripheral neuropathy Endocrine/Autoimmune: None GI: Other : None HEENT: None Psych: Depression, Anxiety, Panic attacks Musculoskeletal: None Derm: None - Past Surgical History Past Surgical History: Yes - Present Medications Home Medications: Ambulatory Orders Medication Instructions Recorded Confirmed Albuterol Sulf [Ventolin Hfa 1 - 2 puffs INH Q4HR PRN #1 inhaler 12/06/19 06/22/20 Inhaler] Escitalopram [Lexapro] 20 mg PO DAILY 12/06/19 06/22/20 Buspirone HCl 30 mg PO DAILY 04/26/20 06/22/20 Alprazolam [Xanax] 1 mg PO DAILY PRN 06/22/20 06/22/20 Clonazepam 0.25 mg PO DAILY PRN 06/22/20 06/22/20 Doxepin [SINEquan] 10 mg PO DAILY 06/22/20 06/22/20 LORazepam [Ativan] 1 mg PO TID PRN #7 tab 06/22/20 - Allergies Allergies/Adverse Reactions: Allergies Allergy/AdvReac Type Severity Reaction Status Date / Time Sulfa (Sulfonamide AdvReac Hives Verified 06/22/20 20:06 Antibiotics) - Social History Does the pt smoke?: No Smoking Status: Never smoker Does the pt drink ETOH?: No Does the pt have substance abuse?: No - Immunizations Immunizations are current?: Yes - POLST Patient has POLST: No PD ED PE NORMAL - Vitals Vital signs reviewed: Yes - General General: Alert and oriented X 3, Other (He is alert and oriented in a cogent historian, he is speaking slightly rapidly though and is slightly jittery.) - Derm Derm: Normal color, Warm and dry, No rash - Neuro Neuro: Alert and oriented X 3, Normal speech - Psych Psych: Normal mood, Normal affect Results - Vitals Vitals: Vital Signs - 24 hr 06/22/20 20:06 Temperature 36.6 C Heart Rate 69 Respiratory 16 Rate Blood Pressure 160/100 H O2 Saturation 100 Oxygen O2 Source Room air Departure - Departure Disposition: Home, Self Care Clinical Impression: Anxiety Condition: Good Record reviewed to determine appropriate education?: Yes Instructions: ED Panic Attack Follow-Up: ALMA DELIA STEWARD ARNP [Physician No Access] - Prescriptions: LORazepam [Ativan] 1 mg PO TID PRN #7 tab PRN Reason: Anxiety Comments: Call your doctor to arrange a follow-up appointment, make the next available appointment. In the interim, return anytime if worse or if new symptoms develop. Discharge Date/Time: 06/22/20 20:47
== END 2020-06-22 20:47 | disposition home or self-care (01) ==
LOC: ED 20:04
DX: F41.9 Anxiety disorder, unspecified (principal)
CPT/HCPCS: 99282; 99283; J8499

== ENCOUNTER 2020-06-23 13:04 | Emergency (ER) | payer OTHER ==
[2020-06-23] MEDS ORDERED: MAG HYDROX/AL HYDROX/SIMETH 30 ML UDC PO STA (13:33)
[2020-06-23] MEDS ORDERED: LIDOCAINE VISCOUS 2% 15 ML UDC MM STA (13:33)
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
[2020-06-23 13:56] LABS: BASOPHILS % (AUTO) 0.6 %; EOSINOPHILS # (AUTO) 0.2 10^3/uL (0.0-0.7); EOSINOPHILS % (AUTO) 3.7 %; HGB - HEMOGLOBIN 14.2 g/dL (14.0-18.0); LYMPHOCYTES # (AUTO) 1.7 10^3/uL (1.5-3.5); LYMPHOCYTES % (AUTO) 27.5 %; MEAN CORPUSCULAR HEMOGLOBIN 32.6 pg (27.0-31.0); MEAN CORPUSCULAR HGB CONC 33.5 g/dL (32.0-36.0); MEAN CORPUSCULAR VOLUME 97.2 fL (80.0-94.0); MEAN PLATELET VOLUME 9.4 fL (7.4-11.4); MONOCYTES # (AUTO) 0.4 10^3/uL (0.0-1.0); MONOCYTES % (AUTO) 6.5 %; NEUTROPHILS # (AUTO) 3.9 10^3/uL (1.5-6.6); NEUTROPHILS % (AUTO) 61.4 %; PLT - PLATELET COUNT 370 10^3/uL (130-450); RED BLOOD COUNT 4.36 10^6/uL (4.70-6.10); RED CELL DISTRIBUTION WIDTH 15.3 % (12.0-15.0); WHITE BLOOD COUNT 6.3 x10^3/uL (4.8-10.8)
[2020-06-23] MEDS ORDERED: SUCRALFATE 1 GM/10 ML UDC PO STA (14:19)
[2020-06-23] MEDS ORDERED: PANTOPRAZOLE 40 MG VIAL IVP STA (14:19)
--- NOTE | 2020-06-23 14:28 | XRAY Report ---
PROCEDURE: Chest 1 View X-Ray INDICATIONS: chest pain TECHNIQUE: One view of the chest was acquired. COMPARISON: 04/26/2020 FINDINGS: Surgical changes and devices: None. Lungs and pleura: No pleural effusions or pneumothorax. Lungs are clear. Mediastinum: Mediastinal contours appear normal. Heart size is normal. Bones and chest wall: No suspicious bony lesions. Overlying soft tissues appear unremarkable. IMPRESSION: No acute cardiopulmonary pathology. Reviewed by: Miguel Ángel Bhatia MD on 06/23/2020 1:27 PM [facility] Approved by: Miguel Ángel Bhatia MD on 06/23/2020 1:27 PM [facility] Station ID: [id number]
[2020-06-23] MEDS ORDERED: SODIUM CHLORIDE 0.9% 1,000 ML IV STA (14:33)
[2020-06-23 15:04] LABS: ALBUMIN 4.4 g/dL (3.2-5.5); ALBUMIN/GLOBULIN RATIO 1.2 (1.0-2.2); BILIRUBIN,TOTAL 1.2 mg/dL (0.2-1.0); CALCIUM 9.7 mg/dL (8.5-10.3); CREATININE 0.9 mg/dL (0.6-1.2); TOTAL PROTEIN 8.2 g/dL (6.7-8.2)
[2020-06-23] MEDS ORDERED: LORazepam 2 MG/ML VIAL IVP STA (15:28)
[2020-06-23 16:30] VITALS: BP 151/112
== END 2020-06-23 16:31 | disposition home or self-care (01) ==
LOC: ED 13:04
DX: K29.00 Acute gastritis without bleeding (principal); F41.9 Anxiety disorder, unspecified; R00.0 Tachycardia, unspecified
CPT/HCPCS: 36415; 71045; 80053; 83690; 84484; 85025; 93005; 96374; 96375; 99284; A9270; J2060

== ENCOUNTER 2020-06-25 17:02 | Emergency (ER) | payer OTHER ==
--- NOTE | 2020-06-25 17:43 | ED Physician Documentation ---
PD HPI CHEST PAIN - Stated complaint Stated Complaint: CHEST & NECK PX - Chief complaint Chief Complaint: Cardiac - History obtained from History obtained from: Patient (44-year-old gentleman has been having a lot of trouble with chest and abdominal pain. Today he presents with 3 days of constant pain that goes from the sternum to the neck and around to the back. Nothing makes it better or worse. He tried Tylenol without relief.) Review of Systems Ten Systems: 10 systems reviewed and negative Constitutional: reports: Reviewed and negative Ears: reports: Reviewed and negative Nose: reports: Reviewed and negative Throat: reports: Reviewed and negative PD PAST MEDICAL HISTORY - Past Medical History Past Medical History: Yes Cardiovascular: None Respiratory: None Neuro: Peripheral neuropathy Endocrine/Autoimmune: None GI: Other : None HEENT: None Psych: Depression, Anxiety, Panic attacks Musculoskeletal: None Derm: None - Past Surgical History Past Surgical History: Yes - Present Medications Home Medications: Ambulatory Orders Medication Instructions Recorded Confirmed Albuterol Sulf [Ventolin Hfa 1 - 2 puffs INH Q4HR PRN #1 inhaler 12/06/19 06/25/20 Inhaler] Buspirone HCl 30 mg PO DAILY 04/26/20 06/25/20 Alprazolam [Xanax] 1 mg PO DAILY PRN 06/22/20 06/25/20 Clonazepam 0.25 mg PO DAILY PRN 06/22/20 06/25/20 Doxepin [SINEquan] 10 mg PO DAILY 06/22/20 06/25/20 Citalopram [CeleXA] 10 mg PO ONCE 06/23/20 06/25/20 Famotidine/Ca Carb/Mag Hydrox 1 each PO BID #40 tab.chew 06/23/20 [Pepcid Complete Tablet Chew] Sucralfate [Carafate] 1 gm PO ACHS #60 tab 06/23/20 - Allergies Allergies/Adverse Reactions: Allergies Allergy/AdvReac Type Severity Reaction Status Date / Time Sulfa (Sulfonamide AdvReac Hives Verified 06/25/20 17:11 Antibiotics) - Social History Does the pt smoke?: No Smoking Status: Never smoker Does the pt drink ETOH?: No Does the pt have substance abuse?: No - Immunizations Immunizations are current?: Yes - POLST Patient has POLST: No PD ED PE NORMAL - Vitals Vital signs reviewed: Yes - General General: Alert and oriented X 3, Other (He appears anxious, talking fast, slightly manic. He is a good historian though.) - HEENT HEENT: PERRL, EOMI - Neck Neck: Supple, no meningeal sign, No bony TTP - Cardiac Cardiac: RRR, No murmur - Respiratory Respiratory: No respiratory distress, Clear bilaterally - Abdomen Abdomen: Soft, Non tender - Back Back: No CVA TTP, No spinal TTP - Derm Derm: Normal color, Warm and dry - Extremities Extremities: No edema, No calf tenderness / cord - Neuro Neuro: Alert and oriented X 3, Normal speech - Psych Psych: Normal mood, Normal affect Results - Vitals Vitals: Vital Signs - 24 hr 06/25/20 06/25/20 06/25/20 17:12 17:18 17:19 Temperature 36.7 C 36.4 C L Heart Rate 104 H 110 H 113 H Respiratory 18 16 19 Rate Blood Pressure 160/100 H 160/100 H 162/104 H O2 Saturation 100 100 100 06/25/20 18:32 Temperature 36.6 C Heart Rate 110 H Respiratory 16 Rate Blood Pressure 127/89 H O2 Saturation 100 Oxygen O2 Source Room air - EKG (time done) 1712 Rate: Rate (enter#) (104) Rhythm: Sinus tachycardia [place]: Normal Intervals: Normal LA QRS: Normal Ischemia: Normal ST segments Computer interpretation: Agree with computer - Labs Labs: Laboratory Tests 06/25/20 06/25/20 06/25/20 17:33 17:52 17:52 WBC 7.9 RBC 4.10 L Hgb 13.5 L Hct 40.4 L MCV 98.5 H MCH 32.9 H MCHC 33.4 RDW 15.2 H Plt Count 344 MPV 8.9 Neut # (Auto) 5.3 Lymph # (Auto) 1.9 [place] # (Auto) 0.5 Eos # (Auto) 0.1 Baso # (Auto) 0.0 Absolute Nucleated RBC 0.00 Nucleated RBC % 0.0 Sodium 138 Potassium 4.0 Chloride 100 L Carbon Dioxide 25 Anion Gap 13.0 BUN 23 H Creatinine 0.9 Estimated GFR (MDRD) 92 Glucose 115 H Calcium 9.5 Total Bilirubin 0.7 AST 17 ALT 18 Alkaline Phosphatase 51 Troponin I High Sens Total Protein 8.0 Albumin 4.5 Globulin 3.5 Albumin/Globulin Ratio 1.3 Lipase 37 Urine Opiates Screen NEGATIVE Ur Oxycodone Screen NEGATIVE Urine Methadone Screen NEGATIVE Ur Propoxyphene Screen NEGATIVE Ur Barbiturates Screen NEGATIVE Ur Tricyclics Screen NEGATIVE Ur Phencyclidine Scrn NEGATIVE Ur Amphetamine Screen POSITIVE H U Methamphetamines Scrn NEGATIVE U Benzodiazepines Scrn POSITIVE H Urine Cocaine Screen NEGATIVE U Cannabinoids Screen NEGATIVE 06/25/20 17:52 WBC RBC Hgb Hct MCV MCH MCHC RDW Plt Count MPV Neut # (Auto) Lymph # (Auto) [place] # (Auto) Eos # (Auto) Baso # (Auto) Absolute Nucleated RBC Nucleated RBC % Sodium Potassium Chloride Carbon Dioxide Anion Gap BUN Creatinine Estimated GFR (MDRD) Glucose Calcium Total Bilirubin AST ALT Alkaline Phosphatase Troponin I High Sens 2.4 Total Protein Albumin Globulin Albumin/Globulin Ratio Lipase Urine Opiates Screen Ur Oxycodone Screen Urine Methadone Screen Ur Propoxyphene Screen Ur Barbiturates Screen Ur Tricyclics Screen Ur Phencyclidine Scrn Ur Amphetamine Screen U Methamphetamines Scrn U Benzodiazepines Scrn Urine Cocaine Screen U Cannabinoids Screen PD MEDICAL DECISION MAKING - ED course ED course: Presents with pain that goes from the upper abdomen up to the neck. Gallstones are considered, but he did have an ultrasound last year without any evidence of same. ACS is considered and will repeat another troponin, but this is not his first visit for this and the previous workups were neg. The pain is not consistent with PE. Previous x-rays have been without widened mediastinum to suggest dissection. This is a 44-year-old gentleman who has been frequenting the emergency department for a variety of complaints, work-ups have been negative. On further evaluation today we did a drug screen which was positive for amphetamines. I explored this with him and he says he has been taking his sister's diet pills. I discussed with him that this may be exacerbating his anxiety and advised him not to take any prescription medications that were not prescribed to him. Departure - Departure Disposition: 01 Home, Self Care Clinical Impression: Amphetamine abuse, Atypical chest pain Condition: Good Record reviewed to determine appropriate education?: Yes Instructions: ED Chest Pain NonCardiac Comments: Do not take any medications that were not prescribed to you. Not only is that dangerous its against the law and bad for you. Return is needed for new or worsening symptoms. Follow-up with your psychiatric nurse practitioner. Discharge Date/Time: 06/25/20 18:35
[2020-06-25 17:44] LABS: MUDS CUTOFF CONCENTRATIONS CUTOFF CONC BELOW:
[2020-06-25 17:49] LABS: AMPHETAMINE SCREEN,URINE POSITIVE (NEGATIVE); BENZODIAZEPINES SCREEN, URINE POSITIVE (NEGATIVE); COCAINE SCREEN URINE NEGATIVE (NEGATIVE); METHADONE SCREEN, URINE NEGATIVE (NEGATIVE); METHAMPHETAMINES SCREEN, URINE NEGATIVE (NEGATIVE); OPIATE SCREEN, URINE NEGATIVE (NEGATIVE); OXYCODONE SCREEN, URINE NEGATIVE (NEGATIVE); PROPOXYPHENE SCREEN, URINE NEGATIVE (NEGATIVE); TRICYCLIC ANTIDEPRESSANT,URINE NEGATIVE (NEGATIVE)
[2020-06-25 17:55] LABS: BASOPHILS % (AUTO) 0.4 %; EOSINOPHILS # (AUTO) 0.1 10^3/uL (0.0-0.7); EOSINOPHILS % (AUTO) 1.5 %; HGB - HEMOGLOBIN 13.5 g/dL (14.0-18.0); LYMPHOCYTES # (AUTO) 1.9 10^3/uL (1.5-3.5); LYMPHOCYTES % (AUTO) 24.1 %; MEAN CORPUSCULAR HEMOGLOBIN 32.9 pg (27.0-31.0); MEAN CORPUSCULAR HGB CONC 33.4 g/dL (32.0-36.0); MEAN CORPUSCULAR VOLUME 98.5 fL (80.0-94.0); MEAN PLATELET VOLUME 8.9 fL (7.4-11.4); MONOCYTES # (AUTO) 0.5 10^3/uL (0.0-1.0); MONOCYTES % (AUTO) 6.7 %; NEUTROPHILS # (AUTO) 5.3 10^3/uL (1.5-6.6); PLT - PLATELET COUNT 344 10^3/uL (130-450); RED CELL DISTRIBUTION WIDTH 15.2 % (12.0-15.0); WHITE BLOOD COUNT 7.9 x10^3/uL (4.8-10.8)
[2020-06-25] MEDS ORDERED: oxyCODONE 5 MG TABLET PO STA (18:04)
[2020-06-25 18:15] LABS: ALBUMIN 4.5 g/dL (3.2-5.5); ALBUMIN/GLOBULIN RATIO 1.3 (1.0-2.2); BILIRUBIN,TOTAL 0.7 mg/dL (0.2-1.0); CALCIUM 9.5 mg/dL (8.5-10.3); CREATININE 0.9 mg/dL (0.6-1.2)
[2020-06-25 18:33] VITALS: BP 127/89
== END 2020-06-25 18:35 | disposition home or self-care (01) ==
LOC: ED 17:02
DX: R07.89 Other chest pain (principal); F15.10 Other stimulant abuse, uncomplicated; F41.9 Anxiety disorder, unspecified; R00.0 Tachycardia, unspecified
CPT/HCPCS: 36415; 80053; 80306; 83690; 84484; 85025; 93005; 99283; 99284; A9270

== ENCOUNTER 2020-09-11 12:33 | Outpatient (CLI) | payer OTHER | END 2020-09-11 12:34 | disposition E | LOC: EMS 12:33 | CPT/HCPCS: A0425; A0429 ==